=== PATIENT | female | born 1940 | race Caucasian/White ===

== ENCOUNTER 2020-06-23 08:46 | Day surgery (SDC) | payer MEDICARE, BC ==
[~2020-06-23] VITALS: Ht 177.8 cm; Wt 100.6 kg
[2020-06-23] VITALS (14 sets, daily range): BP systolic 101–158; BP diastolic 51–77
[2020-06-23] MEDS ORDERED: normal saline 1000ml 1,000 ML IV PRN (09:15)
[2020-06-23] MEDS ORDERED: LEVO112T52 PO (09:34)
[2020-06-23] MEDS ORDERED: LOSA25TA96 PO (09:34)
[2020-06-23] MEDS ORDERED: LEVO100T PO (09:34)
[2020-06-23] MEDS ORDERED: METO-384 PO (09:34)
[2020-06-23] MEDS ORDERED: ACET-1025 PO (09:37)
[2020-06-23] MEDS ORDERED: CELE-193 PO (09:37)
[2020-06-23] MEDS ORDERED: SIMV-42 PO (09:37)
[2020-06-23] MEDS ORDERED: DRON400T7 PO (09:37)
[2020-06-23] MEDS ORDERED: OXYB5TAB16 PO (09:37)
[2020-06-23] MEDS ORDERED: LIDOcaine 1% (10mg/ml) 2ml vial ONE (09:38)
[2020-06-23] MEDS ORDERED: midazolam 1 mg/ML 2ml injection ONE (10:31)
[2020-06-23] MEDS ORDERED: fentaNYL/PF 50MCG/1 ML 2ML syringe ONE (10:31)
== END 2020-06-23 13:25 | disposition home or self-care (01) ==
LOC: SSTAY O 08:46
PROVIDERS: ATTEND Radiology Diagnostic Radiology
DX: R91.8 Other nonspecific abnormal finding of lung field (principal); C34.11 Malignant neoplasm of upper lobe, right bronchus or lung; Z79.899 Other long term (current) drug therapy
CPT/HCPCS: 32408; 71045; 99152; 99153; J2001; J2250; J3010; J7030; 77012; 88305; 88341; 88342